=== PATIENT | male | born 1965 | race Caucasian/White ===

== ENCOUNTER 2017-06-19 15:12 | Observation (INO) | payer BC ==
--- NOTE | 2017-06-19 15:33 | ED Physician Documentation ---
PD HPI CHEST PAIN - Stated complaint Stated Complaint: CHEST PX - Chief complaint Chief Complaint: Cardiac - History obtained from History obtained from: Patient - History of Present Illness Timing - onset: Today Timing - onset during: Other (driving) Timing - duration: Minutes (5-10) Timing - details: Abrupt onset Pain level max: 6 Pain level now: 0 Quality: Pressure, Tightness, Aching Location: Substernal Radiation: Other (non-radiating) Improved by: Other (resolved spontaneously) Worsened by: No: Exertion, Inspiration, Eating, Movement, Palpation, Position Associated symptoms: Shortness of air, Nausea, Feeling faint / dizzy. No: Diaphoresis, Vomiting, General Weakness, Palpitations, Cough Similar symptoms before: Has not had sx before Recently seen: No: Not recently seen - Additional information Additional information: Patient states that he was driving today when he does develop substernal chest tightness, lasting approximately 5 minutes and was accompanied by shortness of breath. This then resolved, he then developed lightheadedness and pain down the left arm. Currently feels normal except for mild lightheadedness. Review of Systems Ten Systems: 10 systems reviewed and negative Constitutional: denies: Fever, Chills Ears: denies: Ear pain Nose: denies: Rhinorrhea / runny nose, Congestion Throat: denies: Sore throat Cardiac: reports: Chest pain / pressure Respiratory: denies: Cough GI: denies: Abdominal Pain, Nausea, Vomiting, Constipation, Diarrhea Skin: denies: Rash Musculoskeletal: denies: Neck pain, Back pain Neurologic: denies: Headache PD PAST MEDICAL HISTORY - Past Medical History Past Medical History: Yes Cardiovascular: Hypertension Endocrine/Autoimmune: HyPOthyroidism - Past Surgical History Past Surgical History: No - Present Medications Home Medications: Ambulatory Orders Medication Instructions Recorded Confirmed Amlodipine/Valsartan/Hcthiazid DAILY 06/19/17 [Tzeop-Mysev-Kvpo 10-160-12.5MG] Cyclobenzaprine [Flexeril] PRN PRN 06/19/17 Levothyroxine [Synthroid] DAILY 06/19/17 - Allergies Allergies/Adverse Reactions: Allergies Allergy/AdvReac Type Severity Reaction Status Date / Time crab Allergy Unknown Verified 06/19/17 15:25 iodine Allergy Anaphylaxis Verified 06/19/17 15:25 tetracycline Allergy Unknown Verified 06/19/17 15:25 - Living Situation Living Arrangement: reports: At home - Social History Does the pt smoke?: Yes Does the pt drink ETOH?: Yes Does the pt have substance abuse?: No - Family History Family history: reports: CAD PD ED PE NORMAL - Vitals Vital signs reviewed: Yes - General General: Alert and oriented X 3, No acute distress, Well developed/nourished - HEENT HEENT: PERRL, Moist mucous membranes - Neck Neck: Supple, no meningeal sign - Cardiac Cardiac: RRR, No murmur, Strong equal pulses - Respiratory Respiratory: No respiratory distress, Clear bilaterally - Abdomen Abdomen: Soft, Non tender, Non distended - Back Back: No spinal TTP - Derm Derm: Warm and dry - Extremities Extremities: No edema, No calf tenderness / cord - Neuro Neuro: Alert and oriented X 3 - Psych Psych: Normal mood, Normal affect Results - Vitals Vitals: Vital Signs - 24 hr 06/19/17 06/19/17 15:23 16:13 Temperature 36.6 C Heart Rate 88 82 Respiratory 18 16 Rate Blood Pressure 165/100 H 158/96 H O2 Saturation 98 96 Oxygen O2 Source Room air - EKG (time done) 1530 Rate: Rate (enter#) (85) Rhythm: NSR [place]: Normal Intervals: Normal OR QRS: Normal Ischemia: Normal ST segments - Labs Labs: Laboratory Tests 06/19/17 06/19/17 06/19/17 15:35 15:35 15:35 WBC 7.9 RBC 5.35 Hgb 16.4 Hct 48.2 MCV 90.1 MCH 30.7 MCHC 34.0 RDW 14.0 Plt Count 182 MPV 7.9 Neut # 4.3 Lymph # 2.6 [place] # 0.5 Eos # 0.3 Baso # 0.1 Absolute Nucleated RBC 0.00 Nucleated RBCs 0.0 Sodium 140 Potassium 3.6 Chloride 105 Carbon Dioxide 28 Anion Gap 7.0 BUN 8 Creatinine 0.9 Estimated GFR (MDRD) 88 L Glucose 88 Calcium 9.2 Phosphorus Magnesium Total Bilirubin 0.8 AST 23 ALT 32 Alkaline Phosphatase 67 Troponin I < 0.04 Total Protein 7.7 Albumin 4.7 Globulin 3.0 Albumin/Globulin Ratio 1.6 Lipase 29 TSH Free T4 06/19/17 06/19/17 15:35 15:35 WBC RBC Hgb Hct MCV MCH MCHC RDW Plt Count MPV Neut # Lymph # [place] # Eos # Baso # Absolute Nucleated RBC Nucleated RBCs Sodium Potassium Chloride Carbon Dioxide Anion Gap BUN Creatinine Estimated GFR (MDRD) Glucose Calcium Phosphorus 3.2 Magnesium 2.0 Total Bilirubin AST ALT Alkaline Phosphatase Troponin I Total Protein Albumin Globulin Albumin/Globulin Ratio Lipase TSH 4.36 Free T4 0.88 - Rads (name of study) cxr Radiology: Prelim report reviewed, EMP read contemporaneously, See rad report ( Normal) PD MEDICAL DECISION MAKING - ED course Complexity details: reviewed results, re-evaluated patient, considered differential (No ST elevation CA, no aortic dissection, no PE, no tension pneumothorax, no aortic aneurysm), d/w patient ED course: Patient is a 52-year-old gentleman who presents to the emergency department with chest pain that lasted approximately 5 minutes, then recurred as left arm pain. No acute findings on EKG, telemetry. First troponin is negative. No acute findings on chest x-ray. History does not appear consistent with PE or aortic dissection. He is a hypertensive patient with a significant smoking history and a family history of CAD, therefore we will place in observation for rule out CA and cardiac risk stratification. Discussed the case with the hospitalist who accepts. This document was made in part using voice recognition software. While efforts are made to proofread this document, sound alike and grammatical errors may occur. Departure - Departure Disposition: ED Place in Observation Clinical Impression: Chest pain Qualifiers: Chest pain type: unspecified Qualified Code(s): R07.9 - Chest pain, unspecified Condition: Good Discharge Date/Time: 06/19/17 19:20
[2017-06-19 15:44] LABS: BASOPHILS # (AUTO) 0.1 10^3/uL (0.0-0.1); BASOPHILS % (AUTO) 0.9 %; EOSINOPHILS # (AUTO) 0.3 10^3/uL (0.0-0.7); EOSINOPHILS % (AUTO) 3.8 %; HCT - HEMATOCRIT 48.2 % (42.0-52.0); HGB - HEMOGLOBIN 16.4 g/dL (14.0-18.0); LYMPHOCYTES # (AUTO) 2.6 10^3/uL (1.5-3.5); LYMPHOCYTES % (AUTO) 33.5 %; MEAN CORPUSCULAR HEMOGLOBIN 30.7 pg (27.0-31.0); MEAN CORPUSCULAR VOLUME 90.1 fL (80.0-94.0); MEAN PLATELET VOLUME 7.9 fL (7.4-11.4); MONOCYTES # (AUTO) 0.5 10^3/uL (0.0-1.0); MONOCYTES % (AUTO) 6.5 %; NEUTROPHILS # (AUTO) 4.3 10^3/uL (1.5-6.6); NEUTROPHILS % (AUTO) 55.3 %; RED BLOOD COUNT 5.35 10^6/uL (4.70-6.10); UNCORRECTED WHITE BLOOD COUNT 7.9 x10^3/uL; WHITE BLOOD COUNT 7.9 x10^3/uL (4.8-10.8)
[2017-06-19] MEDS ORDERED: ASPIRIN CHEW 81 MG TABLET PO STA (15:46)
[2017-06-19] MEDS ORDERED: ASPIRIN CHEW 81 MG TABLET ONE (15:53)
[2017-06-19 15:54] LABS: ALBUMIN/GLOBULIN RATIO 1.6 (1.0-2.2); BILIRUBIN,TOTAL 0.8 mg/dL (0.2-1.0); CALCIUM 9.2 mg/dL (8.5-10.3); CREATININE 0.9 mg/dL (0.6-1.2); POTASSIUM 3.6 mmol/L (3.5-5.0); TOTAL PROTEIN 7.7 g/dL (6.7-8.2)
[2017-06-19] MEDS ORDERED: SODIUM CHLORIDE 0.9% 1,000 ML IV ONE (16:10)
--- NOTE | 2017-06-19 16:29 | XRAY Preliminary Report ---
Exam: XR Chest 1 View IMPRESSION: Normal single view chest. [facility] SITE ID: [id number]
--- NOTE | 2017-06-19 16:31 | XRAY Report ---
EXAM: CHEST RADIOGRAPHY EXAM DATE: 06/19/2017 04:01 PM. CLINICAL HISTORY: Chest pain. Shortness of breath. COMPARISON: None. TECHNIQUE: 1 view. FINDINGS: Lungs/Pleura: No focal opacities evident. No pleural effusion. No pneumothorax. Mediastinum: Within exam limitations, cardiomediastinal contour is normal. Other: No bony abnormalities identified. IMPRESSION: Normal single view chest. [facility] Referring Provider Line: [phone] SITE ID: [id number]
[2017-06-19 16:50] LABS: PHOSPHORUS 3.2 mg/dL (2.5-4.6)
[2017-06-19 17:08] LABS: THYROID STIMULATING HORMONE 4.36 uIU/mL (0.34-5.60)
[2017-06-19] MEDS ORDERED: ONDANSETRON ODT 4 MG TABLET TL PRN (18:11)
[2017-06-19] MEDS ORDERED: ACETAMINOPHEN 325 MG TABLET PO PRN (18:11)
[2017-06-19] MEDS ORDERED: MORPHINE 2 MG/ML SYRINGE IVP PRN (18:11)
[2017-06-19] MEDS ORDERED: SODIUM CHLORIDE FLUSH 0.9% 10 ML SYRINGE IVP PRN (18:11)
[2017-06-19] MEDS ORDERED: NITROGLYCERIN SL 0.4 MG TABLET SL PRN (18:14)
--- NOTE | 2017-06-19 18:19 | HISTORY & PHYSICAL EXAMINATION ---
DATE OF ADMISSION: 06/19/2017 CHIEF COMPLAINT: Midsternal chest pressure with left-sided arm numbness and upper right flank pain. HISTORY OF PRESENT ILLNESS: The patient is a 52-year-old pleasant male who presented to the ER today with a complaint of substernal chest pressure and right upper back and chest discomfort when taking a deep breath. 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 He has a terrible diet. The patient states that he has been eating more fast food recently. He smokes a pack of cigarettes a day and occasionally drinks alcohol. His only medical diagnosis that he takes medication for is hypertension. The patient does not use any illicit street drugs. The patient states he has not been on a cholesterol medication. He was on a statin at one time for his elevated cholesterol. He does not take an aspirin daily. The patient states family does have a cardiac history. States his father did have a heart attack when he was younger. The patient has had no other similar symptoms in the past. At presentation to the ER, he did receive an aspirin; however, he did still continue to have lightheadedness and dizziness with the pain continuing down the left arm. The patient states that the pain in his left arm is more like a tingling sensation that is intermittent. His symptoms would be considered more moderate to severe and are resolving at the time of assessment in the ER. The patient still has some lightheadedness when he goes to stand up. Since the patient does not have a c python developer and has not had a stress test in the last 2 years, nor has he had an echocardiogram, he will be admitted for chest pain rule out with followup for an echocardiogram and an outpatient stress test. ALLERGIES: 1. IODINE. 2. TETRACYCLINE. HOME MEDICATIONS: 1. Amlodipine. 2. Synthroid. PAST MEDICAL HISTORY: Hypothyroidism, hypertension and hyperlipidemia, which he does not take any medication for. PAST SURGICAL HISTORY: None. PAST FAMILY HISTORY: CAD SOCIAL HISTORY: The patient does smoke cigarettes, does drink alcohol occasionally 3-4 beers a week, does not use any illegal substances, is and lives in the [place], [place] area. REVIEW OF SYSTEMS: Ten systems have been reviewed and negative, with exception as discussed in HPI prior. The patient is negative for nausea, vomiting, abdominal pain, constipation, or diarrhea. He denies rash, neck pain, back pain or headache. Denies fever, chills, sore throat, cough, or congestion. He is positive for chest pressure. The patient adamantly described it as "this is not chest pain." PHYSICAL EXAMINATION: CONSTITUTIONAL: The patient is alert, in no acute distress. EYES: Pupils equal, round and react to light and accommodation. Conjunctivae and sclerae are nonicteric, not injected. ENT: Nares were patent. No nasal discharge. Oropharynx with no masses, exudates or lesions. Mucous membranes are moist. NECK: Supple. No thyromegaly. CARDIOVASCULAR: S1, S2, sinus rate and rhythm. No JVD. Normal PMI. RESPIRATORY: Breath sounds are clear and equal bilaterally to auscultation and percussion, no retractions or nasal flaring, or increased work of breathing. GASTROINTESTINAL: Abdomen is obese, tender to upper right flank with palpation, otherwise bowel sounds were present. No guarding or rebound. SKIN: Warm, dry, intact. Normal turgor. No evidence of rash, lesions, or cellulitis. NEUROLOGIC: The patient was alert, GCS 15. Cranial nerves 2 through 7 grossly intact. Sensory was intact. MUSCULOSKELETAL/EXTREMITIES: No cyanosis. Pulses are palpable. The patient had full range of motion with upper and lower extremities. No edema noted. PSYCHIATRIC: Pleasant mood, cooperative, oriented x3. HEMATOLOGIC: No active bleeding. The patient is hemodynamically stable. LYMPHATICS: No cervical, axillary, supraclavicular lymphadenopathy was noted. VITAL SIGNS: Temperature 36.6, heart rate 88, respirations are 18, blood pressure was 158/98 and oxygen saturation was 98% on room air. DIAGNOSTICS AND LABORATORY: I personally reviewed the laboratory and diagnostic data in the medical record and the results are as follows: WBC is 7.9, hemoglobin 16.4. Sodium 140, potassium 3.6, chloride 105, carbon dioxide 28, anion gap 7, creatinine 0.9, BUN is 8. Troponin first one was less than 0.04. Magnesium is pending. IMAGING: EKG: Normal sinus rhythm with normal ST segments, no ischemia noted. Chest x-ray shows no acute process, no infiltrate, pneumothorax or pleural effusion. ASSESSMENT: 1. Acute substernal chest pain with radiation down the left arm, possible cardiac etiology with high risk CHADS score of 6. PLAN: The patient is admitted to observation. He will be ruled out with cardiac enzymes, chest pain protocol with morphine, oxygen, nitroglycerin, and aspirin. The patient is not on a statin at this time. Will include a statin unless the patient does refuse. The patient is already on amlodipine, will add beta ray , questionable though whether the patient is taking amlodipine at home at this time, so we will start him on beta-ray and KRUPA inhibitor. The patient to get an echocardiogram in the morning and followup with a stress test outpatient. 3. Hypothyroidism, unspecified. TSH, T4 have been ordered. We will continue on Synthroid at home dosage. 4. Nicotine dependence, cigarettes, uncomplicated. PLAN: Nicotine patch has been requested p.r.n. as needed and counseling or smoking cessation provided. 5. DVT prophylaxis with Lovenox subcutaneous and foot pumps. STATUS: FULL CODE. RISK ASSESSMENT/DISPOSITION: The patient is high risk for worsening comorbidities. He will require IV medication with high risk for toxicity, additional diagnostics and Code status was addressed at bedside. Time spent on assessment for admission education and planning was about 40 minutes. JOB #: [id number] EXT JOB #:[id number] JO-ANN
[2017-06-19 18:28] LABS: BILIRUBIN,URINE NEGATIVE (NEGATIVE)
[2017-06-19 18:46] LABS: UR CULTURE IF IND NOT INDICATED; WBC,URINE 0-3 /HPF (0-3)
[2017-06-19] MEDS ORDERED: GI COCKTAIL 120 ML BOTTLE PO PRN (19:06)
[2017-06-19] MEDS: SODIUM CHLORIDE 0.9% 1,000 ML IV SCH ×2 (20:15→23:38)
--- NOTE | 2017-06-19 20:39 | Nuclear Medicine Prelim Report ---
Exam: NM Lung Vent/Perf V/Q IMPRESSION: 1. No ventilation/perfusion mismatches to indicate pulmonary emboli. Low probability for acute pulmon clarence embolism. 2. No air trapping. 3. No central aerosol deposition to indicate COPD. [facility] SITE ID: [id number]
[2017-06-19] MEDS: ATENOLOL 25 MG TABLET PO SCH (20:40)
[2017-06-19] MEDS: FAMOTIDINE 20 MG TABLET PO SCH (20:40)
--- NOTE | 2017-06-19 20:49 | Nuclear Medicine Report ---
EXAM: VENTILATION/PERFUSION SCAN (V/Q SCAN) EXAM DATE: 06/19/2017 07:46 PM. CLINICAL HISTORY: Chest pain with shortness of breath, possible PE. COMPARISON: 06/19/2017 chest radiograph. TECHNIQUE: Patient was administered 25.9 mCi of technetium 99m DTPA aerosol by inhalation and 8 stand antonio ventilation images of the lungs were obtained. Next, the patient was injected with 4.9 mCi of carla hnetium 99m MAA intravenously and 8 standard perfusion images of the lungs were obtained. FINDINGS: Ventilation Scan: Symmetric and homogenous pulmonary radioaerosol deposition is present. No significa nt focal defects. Lung volume is normal. No matched ventilation/perfusion defects to indicate air tra pping. Perfusion Scan: Symmetric and homogenous perfusion activity is present. No ventilation/perfusion mism atches are identified. IMPRESSION: 1. No ventilation/perfusion mismatches to indicate pulmonary emboli. Low probability for acute pulmon clarence embolism. 2. No air trapping. 3. No central aerosol deposition to indicate COPD. [facility] Referring Provider Line: [phone] SITE ID: [id number]
[2017-06-19] MEDS: SODIUM CHLORIDE FLUSH 0.9% 10 ML SYRINGE IVP SCH (23:22)
[2017-06-20] MEDS: SODIUM CHLORIDE FLUSH 0.9% 10 ML SYRINGE IVP SCH (05:02)
[2017-06-20 05:47] LABS: BASOPHILS % (AUTO) 0.6 %; EOSINOPHILS # (AUTO) 0.2 10^3/uL (0.0-0.7); EOSINOPHILS % (AUTO) 3.5 %; HCT - HEMATOCRIT 44.8 % (42.0-52.0); HGB - HEMOGLOBIN 14.9 g/dL (14.0-18.0); LYMPHOCYTES # (AUTO) 2.3 10^3/uL (1.5-3.5); LYMPHOCYTES % (AUTO) 32.7 %; MEAN CORPUSCULAR HEMOGLOBIN 30.2 pg (27.0-31.0); MEAN CORPUSCULAR HGB CONC 33.3 g/dL (32.0-36.0); MEAN CORPUSCULAR VOLUME 90.9 fL (80.0-94.0); MEAN PLATELET VOLUME 7.8 fL (7.4-11.4); MONOCYTES # (AUTO) 0.5 10^3/uL (0.0-1.0); MONOCYTES % (AUTO) 6.4 %; NEUTROPHILS % (AUTO) 56.8 %; NUCLEATED RED BLOOD CELLS AUTO 0.1 /100WBC; RED BLOOD COUNT 4.93 10^6/uL (4.70-6.10); RED CELL DISTRIBUTION WIDTH 14.3 % (12.0-15.0)
[2017-06-20 06:04] LABS: ALBUMIN/GLOBULIN RATIO 1.8 (1.0-2.2); BILIRUBIN,TOTAL 0.6 mg/dL (0.2-1.0); BUN - BLOOD UREA NITROGEN 9 mg/dL (6-20); CALCIUM 8.8 mg/dL (8.5-10.3); CARBON DIOXIDE - CO2 27 mmol/L (21-32); CHLORIDE 108 mmol/L (101-111); CHOL/HDL RATIO 9.5 (<5.0); CHOLESTEROL 266 mg/dL; CREATININE 0.9 mg/dL (0.6-1.2); GFR - MDRD 88 (>89); GLUCOSE 99 mg/dL (70-100); HDL CHOLESTEROL 28 mg/dL; LDL/HDL RATIO 6.5 (<3.6); POTASSIUM 4.1 mmol/L (3.5-5.0); SODIUM 142 mmol/L (135-145); TOTAL PROTEIN 6.1 g/dL (6.7-8.2); TRIGLYCERIDES 286 mg/dL; VLDL CHOLESTEROL 57 mg/dL
--- NOTE | 2017-06-20 07:29 | Discharge Plan ---
Discharge Plan Disposition: Home, Self Care Condition: Good Prescriptions: Nitroglycerin [Nitrostat] 0.4 mg SL Q5MIN PRN #1 bottle PRN Reason: Chest Pain Niacin (Inositol Niacinate) [Niacin 500 mg Capsule] 250 mg PO BID #60 tab Nicotine 14 mg Patch [Nicoderm] 1 patch TOP DAILY #10 patch [place]-3S/Dha/Epa/Fish Oil [[place]-3 Fish Oil 1,200 mg Sfgl] 1 each PO BID #60 capsule Aspirin Chewable [St Eleuterio Aspirin] 81 mg PO DAILY #30 tablet Atenolol [Tenormin] 25 mg PO BID #30 tablet Diet: Cardiac (LOW FAT AND LOW CHOLESTEROL) Activity Restrictions: No Restrictions Shower Restrictions: No Driving Restrictions: No Weight Bearing: Full Weight Instruction Topics: Fish Oil [place]-3 Fatty Acids capsules OTC, Nicotine skin patches, Atenolol tablets, Aspirin ASA chewable tablets, Niacin tablets, Nitroglycerin Fast Acting, Cholesterol High Assess Risk, Cholesterol Lifestyle Change, Cholesterol Control Meds, Foods Heart Healthy Additional Instructions or Follow Up instructions: PLEASE TAKE ALL HOME MEDICATIONS PRESCRIBED. YOU HAVE BEEN PRESCRIBED OMEGA 3 AND NIACIN FOR YOUR CHOLESTEROL. SINCE YOU HAD REACTIONS TO THE STATINS, YOU WILL NEED TO BE SURE TO EAT A LOW CHOLESTEROL HEART HEALTHY DIET. TAKE AN ASPIRIN DAILY AND GET PLENTY OF EXERCISE. STRESS CAN WORSEN YOUR RISK FOR A HEART ATTACK. PLEASE TALK WITH YOUR DOCTOR ABOUT STRESS MANAGEMENT AND WAYS TO GET MORE RELAXATION. IF YOU SNORE YOU WILL NEED TO GET A SLEEP STUDY SINCE THIS CAN WORSEN CHOLESTEROL AND RISK FOR HEART ATTACK. HAVE YOUR BLOOD PRESSURE CHECKED DAILY AND TAKE THE BLOOD PRESSURE MEDICATIONS INCLUDING THE BETA KAR PRESCRIBED. YOU WILL NEED TO ADD A COQ10 MEDICATION TO YOUR DAILY MEDICATIONS. THIS CAN BE BOUGHT OVER THE COUNTER. BETA BLOCKERS CAN DROP YOUR COQ10 LEVEL. PLEASE SEE YOUR PRIMARY CARE PROVIDER TO SET UP A STRESS TEST WITH A REHAB AIDE. IF YOU HAVE CHEST PAIN OR SHORTNESS OF BREATH AGAIN, RETURN TO THE ER OR CALL 911. STOP SMOKING. YOU HAVE BEEN GIVEN NICOTINE PATCH PRESCRIPTION. THIS WILL LOWER YOUR CHOLESTEROL BETTER THAN MEDICATIONS. No Smoking: If you smoke, Please STOP! Call for help. Follow-up with: Pj Stringer MD [Primary Care Provider] -
[2017-06-20] MEDS ORDERED: OMEGA-3 ACID ETHYL ESTERS 1 GM CAPSULE PO ONE (07:42)
[2017-06-20] MEDS ORDERED: NIACIN ER 500 MG TABLET PO ONE (07:43)
[2017-06-20 08:06] VITALS: BP 129/82
[2017-06-20] MEDS ORDERED: POLYETHYLENE GLYCOL 3350 17 GM PACKET PO SCH (09:00)
[2017-06-20] MEDS ORDERED: ENOXAPARIN 40 MG/0.4 ML SYRINGE SUBQ SCH (09:00)
[2017-06-20] MEDS ORDERED: NICOTINE 14 MG PATCH TOP SCH (09:00)
[2017-06-20] MEDS ORDERED: ASPIRIN CHEW 81 MG TABLET PO SCH (09:00)
[2017-06-20] MEDS: FAMOTIDINE 20 MG TABLET PO SCH (09:21)
[2017-06-20] MEDS: ATENOLOL 25 MG TABLET PO SCH (09:21)
== END 2017-06-20 11:10 | disposition home or self-care (01) ==
LOC: ED 15:12 → OBS 16:29
PROVIDERS: ADMIT Nurse Practitioner; ATTEND Nurse Practitioner
DX: R07.89 Other chest pain (principal); F17.210 Nicotine dependence, cigarettes, uncomplicated; E03.9 Hypothyroidism, unspecified; I10 Essential (primary) hypertension; Z79.899 Other long term (current) drug therapy; Z82.49 Family history of ischemic heart disease and other diseases of the circulatory system
CPT/HCPCS: 36415; 71010; 78582; 80053; 80061; 80306; 81001; 83690; 83735; 84100; 84439; 84443; 84484; 85025; 85379; 93005; 93306; 99218; 99284; 99285; A9270; A9539; A9540; 87086